=== PATIENT | female | born 1965 | race Caucasian/White ===

== ENCOUNTER 2017-05-31 11:07 | Emergency (ER) | payer OTHER ==
[2017-05-31 11:36] VITALS: TEMP 98.6; BMI 39.1
--- NOTE | 2017-05-31 13:22 | PDOC ---
History of Present Illness - General Chief Complaint: Pain Stated Complaint: CHEST PAIN, ABD PAIN - History of Present Illness Initial Comments: Ms Amador is a 52yo F with a PMHx of developmental delay, morbid obesity who presents with 2 days of abdominal pain. She is a poor historian and unable to mostly characterize the nature of her pain. Family present at bedside. They tried one dose of omeprazole which did not help the pain. She never vomited, but she has non-bloody diarrhea. Denies sick contacts. Denies recent antibiotic use. Also has associated midsternal chest pain, but unable to describe more. Past History - Past Medical History Allergies/Adverse Reactions: Allergies Allergy/AdvReac Type Severity Reaction Status Date / Time No Known Allergies Allergy Verified 05/31/17 11:32 COPD: No HTN: Yes Psychiatric Problems: Yes (SCHIZ) Thyroid Disease: Yes (hypo) Other medical history: M.R - Suicide/Smoking/Psychosocial Hx Smoking History: Never smoked Have you smoked in the past 12 months: No Information on smoking cessation initiated: No Hx Alcohol Use: No Drug/Substance Use Hx: No Review of Systems - Review of Systems Able to Perform ROS?: No *Physical Exam - Vital Signs Last Vital Signs Temp Pulse Resp BP Pulse Ox 98.6 F 106 H 18 164/79 100 05/31/17 11:33 05/31/17 11:33 05/31/17 11:33 05/31/17 11:33 05/31/17 11:33 - Physical Exam Comments: GEN: Awake, alert, morbidly obese, appears comfortable, smiling HEENT: PERRLA, EOMi CV: S1, S2, RRR LUNG: CTABL ABD: obese, TTP mostly in epigastrium/RUQ MSK: No edema, no erythema NEURO: Difficult to assess, but moves limbs symmetrically, no facial droop Heart Score/ECG Review - ECG Intrepretation Comment:: NSR @ 102bpm Normal axis. No p wave abnormalities. No ST or T wave changes. ED Treatment Course - LABORATORY CBC & Chemistry Diagram: 05/31/17 13:37 05/31/17 13:37 - RADIOLOGY Radiology Studies Ordered: Category Date Time Status GALLBLADDER US [US] Stat Ultrasound 05/31/17 13:10 Ordered LIVER US [US] Stat Ultrasound 05/31/17 13:10 Ordered Medical Decision Making - Medical Decision Making 52yo F with a PMHx of morbid obesity and developmental delay who presents with 2 days of abdominal pain and diarrhea. I suspect her pain is RUQ, but because of the difficulty in obtaining history, there is a wide differential. DDx include: cholelithiasis, cholecystitis, gastritis/GERD, pancreatitis. This could also be atypical [place] or viral gastroenteritis. -- CBC, CMP -- Cardiac Profile, EKG -- Lipase -- RUQ ultrasound -- CXR Will defer on pain control for now as patient is very comfortable. 05/31/17 14:55 DAVID U/S reveals gallstones. Pt has appointment with Dr Patel group on June 04. Dispo home. *DC/Admit/Observation/Transfer Diagnosis at time of Disposition: Cholelithiases Qualifiers: Cholelithiasis location: gallbladder Cholecystitis presence: without cholecystitis Biliary obstruction: without biliary obstruction Qualified Code(s) : K80.20 - Calculus of gallbladder without cholecystitis without obstruction - Discharge Dispostion Disposition: HOME Condition at time of disposition: Stable Admit: No - Referrals Referrals: Jonathan Patel MD [Staff Physician] - (Appointment on June 04) Job Estrada MD [Primary Care Provider] - 1 week - Patient Instructions Printed Discharge Instructions: DI for Gallstones Print Language: MACANESE - Post Discharge Activity
[2017-05-31 13:46] LABS: BASO % 0.3 % (0-2.0); EOS % 0.2 % (0-4.5); HEMATOCRIT 41.9 % (32.4-45.2); HEMOGLOBIN 13.7 GM/dL (10.7-15.3); LYMPH % 24.3 % (8-40); MCH 29.2 pg (25.7-33.7); MCHC 32.7 g/dl (32.0-36.0); MEAN CELL VOLUME 89.3 fl (80-96); MEAN PLT VOLUME 8.8 fl (7.5-11.1); MONO % 10.5 % (3.8-10.2); NEUT % 64.7 % (42.8-82.8); RBC 4.69 M/mm3 (3.60-5.2); RDW 16.6 % (11.6-15.6); WHITE BLOOD COUNT 11.1 K/mm3 (4.0-10.0)
--- NOTE | 2017-05-31 13:58 | EKG ---
Test Reason : Blood Pressure : / mmHG Vent. Rate : 102 BPM Atrial Rate : 102 BPM P-R Int : 124 ms QRS Dur : 088 ms QT Int : 368 ms P-R-T Axes : 063 016 051 degrees QTc Int : 479 ms SINUS TACHYCARDIA CANNOT RULE OUT ANTERIOR INFARCT , AGE UNDETERMINED NONSPECIFIC ST ABNORMALITY ABNORMAL ECG NO PREVIOUS ECGS AVAILABLE Confirmed by DELL THOMAS MD ([id number]) on 05/31/2017 1:57:59 PM Referred By: Confirmed By:DELL THOMAS MD
[2017-05-31 14:19] LABS: ALBUMIN 3.5 g/dl (3.4-5.0); ANION GAP 10 (8-16); BLOOD UREA NITROGEN 7 mg/dL (7-18); CALCIUM 8.6 mg/dL (8.5-10.1); CHLORIDE 97 mmol/L (98-107); CO2 25 mmol/L (21-32); CREATININE 0.7 mg/dL (0.55-1.02); GLUCOSE,RANDOM 92 mg/dL (74-106); LIPASE 81 U/L (73-393); POTASSIUM 4.5 mmol/L (3.5-5.1); SGOT/AST 45 U/L (15-37); SGPT/ALT 24 U/L (12-78); SODIUM 132 mmol/L (136-145)
[2017-05-31 14:21] LABS: ALK PHOS 77 U/L (45-117); BILIRUBIN,TOTAL 0.3 mg/dL (0.2-1.0); TOT PROT 8.1 g/dl (6.4-8.2)
[2017-05-31 14:25] LABS: PLATELET ESTIMATE ADEQUATE
--- NOTE | 2017-05-31 14:38 | PDOC ---
Attending Attestation - HPI HPI: 05/31/17 14:45 The patient is a 52 year old female, with a significant past medical history of morbid obesity, developmental delay, who presents to the emergency department with, approx. 2 days of abdominal pain. The Patient is a poor historian and is unable to describe the abdominal pain further. As per patients family, the patient has also been having frequent non bloody diarrhea for approx 1 day. Allergies: NKA Primary Care Physician: Dr. Job Estrada Documentation prepared by Colby Guevara, acting as certified medical technician for Jamie Rose MD. <Colby Guevara - Last Filed: 05/31/17 14:49> - Resident Resident Name: Juventino Shipley - ED Attending Attestation I have performed the following: I have examined & evaluated the patient, The case was reviewed & discussed with the resident, I agree w/resident's findings & plan, Exceptions are as noted - Physicial Exam PE: 05/31/17 15:15 Patient is awake and alert, morbidly obese, in no distress Normocephalic, atraumatic, PERRLA, EOMI, no scleral icterus, mmm CTA, rrr sft, nd, + right upper quadrant tenderness to deep palpation; no guarding or rebound; No lower extremity edema - Medical Decision Making 05/31/17 15:15 Patient is a 52-year-old female who presented to the ER with atraumatic right upper quadrant and right-sided chest discomfort. CBC reveals minimally elevated WBCs of 11 with a normal differential, CMP reveals normal LFTs and a negative troponin. Right upper quadrant ultrasound reveals cholelithiasis and hepatomegaly without evidence of acute cholecystitis. Patient's afebrile and is able tolerate by mouth. I do not suspect ACS or PE at this time. I believe pain is referred from the right upper quadrant and is related to gallstones. Patient will be referred to outpatient surgery for reevaluation, patient also scheduled to be evaluated by GI. <Jamie Rose - Last Filed: 05/31/17 15:16>
[2017-05-31 15:12] VITALS: BP 143/88; PULSE 107
== END 2017-05-31 16:19 | disposition home or self-care (01) ==
LOC: JER 11:07
DX: K80.20 Calculus of gallbladder without cholecystitis without obstruction (principal); I10 Essential (primary) hypertension; F25.9 Schizoaffective disorder, unspecified; E03.9 Hypothyroidism, unspecified; R62.50 Unspecified lack of expected normal physiological development in childhood; F79 Unspecified intellectual disabilities; E66.9 Obesity, unspecified; Z68.39 Body mass index [BMI] 39.0-39.9, adult
CPT/HCPCS: 36415; 71045-TC; 76705-TC; 80053; 82550; 82553; 83690; 84484; 85025; 93005; 93010; 99282-25